=== PATIENT | male | born 1995 | race Caucasian/White ===

== ENCOUNTER 2020-12-06 14:42 | Emergency (ER) | payer OTHER ==
[~2020-12-06] VITALS: Ht 195.6 cm; Wt 137.0 kg
[~2020-12-06 14:42] MED LIST: AMOXICILLIN500 MG PO; CEPHALEXIN500 MG PO; CIPRO500 MG PO; CLARITIN10 MG PO; CORTISPORIN OTI10 ML AD; KEFLEX500 M1; POLYTRIM OS
[2020-12-06 17:15] VITALS: BP 155/87
== END 2020-12-06 17:15 | disposition home or self-care (01) | DRG 179 ==
LOC: ED 14:42
DX: U07.1 COVID-19 (principal); F17.200 Nicotine dependence, unspecified, uncomplicated